=== PATIENT | female | born 1960 | race Caucasian/White ===

== ENCOUNTER → 2017-05-07 15:50 | Outpatient (CLI) | payer OTHER, SELFPAY ==
[2017-05-07 18:05] LABS: Hematocrit 36.6 % (37-47); Hemoglobin 11.5 g/dl (12.0-15.0); Mean Corp Hgb Conc 31.4 g/gl (32-36); Mean Corpuscular Hgb 27.2 pg (27.0-32.0); Mean Corpuscular Volume 86.5 fL (81-99); Platelet Count 392 K/mm3 (150-450); RBC Distribution Width CV 14.3 % (11.6-14.6); RBC Distribution Width SD 44.9 fl (35.1-43.9); Red Blood Count 4.23 M/mm3 (4.2-5.4); White Blood Count 6.5 K/mm3 (4.4-11.0)
[2017-05-07 18:23] LABS: Amphetamine Urine VISTA NEGATIVE (<1000 ng/mL); Anion Gap 9 (5-15); BUN 13 mg/dL (7-18); BUN/Creat Ratio 17.9 RATIO (10-20); Barbiturate Urine VISTA NEGATIVE (< 200 ng/mL); Benzodiazepine Urine VISTA NEGATIVE (< 200 ng/mL); Calcium,Total 8.2 mg/dL (8.5-10.1); Chloride 104 mmol/L (98-107); Cocaine Urine VISTA NEGATIVE (< 300 ng/mL); Creatinine, Serum 0.72 mg/dL (0.55-1.02); EST Glomerular Filtration Rate 88 mL/min (>60); Ecstacy Urine VISTA NEGATIVE (< 500 ng/mL); Est Glom Filt Rate - Afr Amer 107 mL/min (>60); Ferritin 12 ng/mL (8-252); Glucose 92 mg/dL (74-106); Iron 33 ug/dL (50-170); Methadone Urine VISTA NEGATIVE (< 300 ng/mL); PCP Urine VISTA NEGATIVE (< 25 ng/mL); Phosphorus 3.3 mg/dL (2.5-4.9); Potassium 3.5 mmol/L (3.5-5.1); Sodium Level 140 mmol/L (136-145); THC Urine VISTA NEGATIVE (< 50 ng/mL); Thyroid Stim Hormone (TSH) 2.17 uIU/mL (0.358-3.74); Vista UDS pH Range 6
[2017-05-07 18:58] LABS: Scan Indicated on CBC? Y/N NO
[2017-05-08 08:49] LABS: PTHIN 188.3 pg/mL (18.4-80.1)
[2017-05-08 09:12] LABS: Vitamin D,25 Hydroxy 11.8 ng/mL (19.95-100.01)
== END ==
PROVIDERS: Family Provider Family Medicine; PCP Family Medicine; Visit Provider Family Medicine
DX: D50.9 Iron deficiency anemia, unspecified (principal); G89.29 Other chronic pain; M81.0 Age-related osteoporosis without current pathological fracture
CPT/HCPCS: 36415; 80048; 80307; 82306; 82330; 82728; 83540; 83970; 84100; 84443; 85027

== ENCOUNTER → 2017-08-06 16:13 | Outpatient (CLI) | payer OTHER, SELFPAY ==
[2017-08-06 17:56] LABS: Absolute Lymphocyte Count 2.55 X10^3/ul (0.83-4.51); Absolute Neutrophil Count 4.4 X10^3/uL (2.0-7.7); Basophil# 0.07 X10^3/uL; Basophil% 0.9 % (0-1); Eosinophil# 0.21 X10^3/uL; Eosinophils% 2.8 % (0-5); Hematocrit 33.3 % (37-47); Hemoglobin 10.5 g/dl (12.0-15.0); Immature Platelet Fraction 0.8 % (1.0-7.9); Lymphocyte # 2.55 X10^3/ul (4.0); Lymphocyte % 33.7 % (19-41); Mean Corp Hgb Conc 31.5 g/gl (32-36); Mean Corpuscular Hgb 26.9 pg (27.0-32.0); Mean Corpuscular Volume 85.4 fL (81-99); Mean Platelet Vol. 8.9 fl (6.2-12.0); Monocyte# 0.34 X10^3/uL; Monocyte% 4.5 % (0-10); Neutrophil # 4.39 X10^3/uL (2.7-7.7); Platelet Count 439 K/mm3 (150-450); RBC Distribution Width CV 14.8 % (11.6-14.6); RBC Distribution Width SD 46.2 fl (35.1-43.9); Reticulocyte Count 1.35 % (0.5-1.5); White Blood Count 7.6 K/mm3 (4.4-11.0)
[2017-08-06 18:01] LABS: POSITIVE COUNT NO; POSITIVE DIFFERENTIAL NO; POSITIVE MORPHOLOGY NO
[2017-08-06 18:08] LABS: Anion Gap 8 (5-15); BUN 14 mg/dL (7-18); Calcium,Total 8.4 mg/dL (8.5-10.1); Chloride 105 mmol/L (98-107); Creatinine, Serum 0.78 mg/dL (0.55-1.02); EST Glomerular Filtration Rate 81 mL/min (>60); Est Glom Filt Rate - Afr Amer 98 mL/min (>60); Ferritin 14 ng/mL (8-252); Glucose 93 mg/dL (74-106); Iron 48 ug/dL (50-170); Iron Binding Capacity,Total 394 ug/dL (250-450); PERCENT IRON SATURATION 12.2 % (15.0-55.0); Sodium Level 140 mmol/L (136-145)
[2017-08-07 09:21] LABS: PTHIN 159.6 pg/mL (18.4-80.1)
[2017-08-07 09:25] LABS: Vitamin D,25 Hydroxy 40.1 ng/mL (29.95-100.01)
== END ==
PROVIDERS: Family Provider Family Medicine; PCP Family Medicine; Visit Provider Family Medicine
DX: E55.9 Vitamin D deficiency, unspecified (principal); E83.51 Hypocalcemia
CPT/HCPCS: 36415; 80048; 82306; 82330; 82728; 83540; 83550; 83970; 85025; 85045

== ENCOUNTER → 2017-11-06 15:48 | Outpatient (CLI) | payer OTHER, SELFPAY | PROVIDERS: Family Provider Family Medicine; PCP Family Medicine; Visit Provider Anesthesiology Pain Medicine | DX: M51.34 Other intervertebral disc degeneration, thoracic region (principal); M54.14 Radiculopathy, thoracic region | CPT/HCPCS: 72146 ==

== ENCOUNTER → 2017-12-20 15:58 | Outpatient (CLI) | payer OTHER, SELFPAY ==
[2017-12-20 17:27] LABS: Absolute Neutrophil Count 3.7 X10^3/uL (2.0-7.7); Basophil# 0.11 X10^3/uL; Basophil% 1.6 % (0-1); Eosinophil# 0.22 X10^3/uL; Eosinophils% 3.2 % (0-5); Hematocrit 33.6 % (37-47); Hemoglobin 10.6 g/dl (12.0-15.0); Lymphocyte % 35.4 % (19-41); Mean Corp Hgb Conc 31.5 g/gl (32-36); Mean Corpuscular Hgb 26.3 pg (27.0-32.0); Mean Corpuscular Volume 83.4 fL (81-99); Mean Platelet Vol. 9.6 fl (6.2-12.0); Monocyte# 0.38 X10^3/uL; Monocyte% 5.6 % (0-10); Neutrophil # 3.66 X10^3/uL (2.7-7.7); Neutrophil % 54.1 % (47-70); Platelet Count 388 K/mm3 (150-450); RBC Distribution Width CV 14.4 % (11.6-14.6); Red Blood Count 4.03 M/mm3 (4.2-5.4); White Blood Count 6.8 K/mm3 (4.4-11.0)
[2017-12-20 17:29] LABS: POSITIVE COUNT NO; POSITIVE DIFFERENTIAL NO; POSITIVE MORPHOLOGY NO
[2017-12-20 17:33] LABS: Anion Gap 12 (5-15); BUN 10 mg/dL (7-18); BUN/Creat Ratio 12.6 RATIO (10-20); Calcium,Total 8.8 mg/dL (8.5-10.1); Chloride 103 mmol/L (98-107); Creatinine, Serum 0.79 mg/dL (0.55-1.02); EST Glomerular Filtration Rate 80 mL/min (>60); Est Glom Filt Rate - Afr Amer 96 mL/min (>60); Glucose 99 mg/dL (74-106); Iron 37 ug/dL (50-170); Potassium 3.7 mmol/L (3.5-5.1); Sodium Level 141 mmol/L (136-145)
[2017-12-20 18:17] LABS: PTHIN 156.1 pg/mL (18.4-80.1)
== END ==
PROVIDERS: Family Provider Family Medicine; PCP Family Medicine; Visit Provider Family Medicine
DX: D64.9 Anemia, unspecified (principal)
CPT/HCPCS: 36415; 80048; 83540; 83970; 85025

== ENCOUNTER → 2017-12-24 15:17 | Outpatient (CLI) | payer OTHER, SELFPAY ==
[2017-12-24 18:01] LABS: Ferritin 12 ng/mL (8-252); Phosphorus 2.9 mg/dL (2.5-4.9)
== END ==
PROVIDERS: Family Provider Family Medicine; PCP Family Medicine; Referring Provider Family Medicine; Visit Provider Family Medicine
DX: D50.9 Iron deficiency anemia, unspecified (principal); E34.9 Endocrine disorder, unspecified
CPT/HCPCS: 36415; 82306; 82330; 82728; 84100

== ENCOUNTER → 2018-06-18 10:19 | Outpatient (CLI) | payer OTHER, SELFPAY ==
--- NOTE | 2018-06-18 10:27 | RAD_ITS ---
STUDY: X-RAY CHEST REASON FOR EXAM: Female, 57 years old. Shortness of breath since March. No improvement. TECHNIQUE: PA and lateral views of the chest. COMPARISON: None. FINDINGS: Vague density in the right middle lobe. The lungs appear otherwise clear. There is no demonstrated pleural abnormality. Normal size heart. Normal mediastinum and brit. Normal visualized pulmonary arteries. Normal visualized aortic arch and descending thoracic aorta. There are diffuse degenerative changes of the visualized thoracic spine. There is degenerative osteoarthritis of the bilateral shoulders. There is no demonstrated abnormality of the visualized soft tissue structures of the upper abdomen. RAD/Chest PA and Lateral IMPRESSION: Vague density in the right middle lobe. Question infiltrate versus chronic change. Electronically Signed: Gabino Rosenberg DO at 15:17 EDT Tel [phone], Service support ,
== END ==
PROVIDERS: Family Provider Family Medicine; PCP Family Medicine; Referring Provider Family Medicine; Visit Provider Family Medicine
DX: J45.909 Unspecified asthma, uncomplicated (principal)
CPT/HCPCS: 71046

== ENCOUNTER → 2019-08-08 | Outpatient (CLI) | payer OTHER, SELFPAY ==
[2019-08-08 08:27] LABS: Hematocrit 32.6 % (37-47); Hemoglobin 9.8 g/dL (12.0-15.0); Mean Corp Hgb Conc 30.1 g/dL (32-36); Mean Corpuscular Hgb 24.8 pg (27.0-32.0); Mean Corpuscular Volume 82.5 fL (81-99); Mean Platelet Vol. 9.2 fl (6.2-12.0); Platelet Count 431 K/mm3 (150-450); RBC Distribution Width CV 14.7 % (11.6-14.6); RBC Distribution Width SD 44.3 fl (35.1-43.9); Red Blood Count 3.95 M/mm3 (4.2-5.4); White Blood Count 7.5 K/mm3 (4.4-11.0)
[2019-08-08 08:58] LABS: AST(SGOT) 12 U/L (15-37); Alanine Aminotransfer ALT/SGPT 13 U/L (13-56); Albumin, Serum 3.6 g/dL (3.2-5.0); Alkaline Phosphatase 96 U/L (45-117); Anion Gap 5 (5-15); BUN 13 mg/dL (7-18); BUN/Creat Ratio 13.4 RATIO (10-20); Calcium,Total 8.9 mg/dL (8.5-10.1); Chloride 109 mmol/L (98-107); Cholesterol 228 mg/dL (200); Creatinine, Serum 0.97 mg/dL (0.55-1.02); EST Glomerular Filtration Rate 63 mL/min (>60); Est Glom Filt Rate - Afr Amer 76 mL/min (>60); Globulin 3.5 g/dL (2.2-4.2); Glucose 91 mg/dL (74-106); High Density Lipoprotein 67 mg/dL; Protein, Total 7.1 g/dL (6.4-8.2); Sodium Level 141 mmol/L (136-145); Triglycerides 113 mg/dL; Very Low Density Lipoprotein 23 mg/dL (5-40)
[2019-08-10 08:47] LABS: Vitamin D,25 Hydroxy 76.2 ng/mL
[2019-08-11 04:38] LABS: SAR-COV-2 IGG ANTIBODY Negative (Negative)
== END | disposition home or self-care (01) ==
LOC: LAB 06:59
PROVIDERS: PCP Family Medicine; Referring Provider Family Medicine; Visit Provider Family Medicine
DX: D50.9 Iron deficiency anemia, unspecified (principal); I10 Essential (primary) hypertension; E55.9 Vitamin D deficiency, unspecified; Z20.828 Contact with and (suspected) exposure to other viral communicable diseases
CPT/HCPCS: 36415; 80053; 80061; 82306; 85027; 86769

== ENCOUNTER → 2019-12-07 | Outpatient (CLI) | payer OTHER, SELFPAY ==
[2019-12-11 12:55] LABS: HPV Reflexed? NOT INDICATED
== END | disposition home or self-care (01) ==
LOC: LABSPEC 18:26
PROVIDERS: PCP Family Medicine; Visit Provider Family Medicine
DX: Z00.00 Encounter for general adult medical examination without abnormal findings (principal)
CPT/HCPCS: 88175; G0145

== ENCOUNTER → 2019-12-08 | Outpatient (CLI) | payer OTHER, SELFPAY ==
--- NOTE | 2019-12-08 10:10 | BI_ITS ---
MAMMOGRAPHY - BILATERAL SCREENING REASON FOR EXAM: Female, 59 years old. Routine annual screening examination. PERTINENT HISTORY: Sister with breast cancer. Remote left stereotactic breast biopsy. TECHNIQUE: Digital bilateral breast benjamin (3D mammographic acquisition) in the CC and MLO projections. 2-D mediolateral oblique (MLO) and craniocaudad (CC) views of both breasts were obtained. CAD: Full Field Digital Mammography with Computer Added Detection was performed. COMPARISON: Comparison is made with prior study dated 10/26/2015 and 06/01/2011. FINDINGS: Breast Composition: There are scattered areas of fibroglandular density. There are no dominant masses or suspicious calcifications. No other significant abnormalities are identified. There has been no significant change since the prior study. BI/SCREEN MAMM (CAD) W/BENJAMIN BILAT IMPRESSION: Stable bilateral screening mammogram. Yearly follow-up mammogram recommended. (A) ASSESSMENT CATEGORY: BIRADS Category 1: Negative. A letter regarding these results will be sent to the patient by the facility within 30 days. Approximately 10% of breast cancers are not detected by mammography. A normal mammogram should not delay biopsy of a clinically suspicious abnormality. [id number] Electronically Signed: Fredy Gomez, at 12:47 EDT , Service support ,
--- NOTE | 2019-12-08 10:15 | BD_ITS ---
STUDY: DUAL ENERGY X-RAY ABSORPTIOMETRY / DXA REASON FOR EXAM: Female, 59 years old. 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 HEIGHT TECHNIQUE: Bone Mineral Density (BMD) measurements of lumbar spine and bilateral hips were obtained. COMPARISON: None. FINDINGS: Lumbar Spine (L1-L4): g/cm2 (0.823) / T-score (-2.8) / Z-score (-1.8) Findings are suggestive of osteoporosis with a high fracture risk. Left Femur Total: g/cm2 (0.658) / T-score (-2.8) / Z-score (-2.0) Left Femoral Neck: g/cm2 (0.686) / T-score (-2.5) / Z-score (-1.4) Right Femur Total: g/cm2 (0.633) / T-score (-3.0) / Z-score (-2.2) Right Femoral Neck: g/cm2 (0.664) / T-score (-2.7) / Z-score (-1.5) BD/Dexa Bone Density Study IMPRESSION: The patient is considered osteoporotic as outlined below according to World Dm Organization (WHO) criteria with a high fracture risk. Reference Information: The T-score is the number of standard deviations above or below the standard which is normal for young adults at their peak bone mineral density. The World Health Organization (WHO) interprets the T-scores as follows: Above -1 Normal bone density Between -1 and -2.5 Osteopenia Equal to / or below -2.5 Osteoporosis As a practical clinical guideline, osteopenia may be graded as follows: Mild -1 through -1.5 Moderate -1.6 through -2.0 Severe -2.1 through -2.4 The Z-score is the number of standard deviations above or below age-matched controls. A Z-score of less than -1.5 would be considered abnormal. References: 1. NIH Osteoporosis and Related Bone Diseases http://www.osteo.org 2. International Society for Clinical Densitometry http://www.iscd.org 3. National Osteoporosis Foundation http://www.nof.org Electronically Signed: Fredy Gomez, at 11:08 EDT , Service support ,
== END | disposition home or self-care (01) ==
LOC: OPBD 10:09
PROVIDERS: PCP Family Medicine; Referring Provider Family Medicine; Visit Provider Family Medicine
DX: M81.0 Age-related osteoporosis without current pathological fracture (principal); Z12.31 Encounter for screening mammogram for malignant neoplasm of breast
CPT/HCPCS: 77063; 77067; 77080

== ENCOUNTER → 2020-02-10 16:55 | Outpatient (CLI) | payer OTHER, SELFPAY ==
[2020-02-10 19:07] LABS: Anion Gap 5 (5-15); BUN 18 mg/dL (7-18); BUN/Creat Ratio 16.4 RATIO (10-20); Calcium,Total 8.9 mg/dL (8.5-10.1); Chloride 111 mmol/L (98-107); EST Glomerular Filtration Rate 54 mL/min (>60); Est Glom Filt Rate - Afr Amer 66 mL/min (>60); Glucose 91 mg/dL (74-106); Magnesium 2.3 mg/dL (1.6-2.6); Potassium 3.8 mmol/L (3.5-5.1); Sodium Level 144 mmol/L (136-145)
[2020-02-11 07:49] LABS: PTHIN 124.8 pg/mL (18.4-80.1)
== END ==
PROVIDERS: PCP Family Medicine; Visit Provider Family Medicine
DX: M81.0 Age-related osteoporosis without current pathological fracture (principal)
CPT/HCPCS: 36415; 80048; 82330; 83735; 83970

== ENCOUNTER → 2020-04-08 11:31 | Outpatient (CLI) | payer OTHER, SELFPAY ==
--- NOTE | 2020-04-08 11:35 | RAD_ITS ---
STUDY: X-RAY - LEFT SHOULDER REASON FOR EXAM: Left shoulder pain. TECHNIQUE: 4 view(s) of the shoulder. COMPARISON: Radiographs 07/06/2010. FINDINGS: There is osteopenia. Normal glenohumeral articulation. There is mild acromioclavicular arthrosis. Normal acromion. Normal humeral head and visualized proximal humerus. The soft tissue structures are unremarkable. Normal visualized pulmonary apex. RAD/Shoulder min 2 Views IMPRESSION: Mild acromioclavicular arthrosis. Electronically Signed: Moo Corado MD at 13:30 EST Tel , Service support ,
== END ==
LOC: MTLAB 11:33 → MTRAD 11:35
PROVIDERS: PCP Family Medicine; Referring Provider Family Medicine; Visit Provider Family Medicine
DX: M25.512 Pain in left shoulder (principal)
CPT/HCPCS: 73030

== ENCOUNTER → 2020-05-25 16:45 | Outpatient (CLI) | payer OTHER, SELFPAY ==
[2020-05-25 18:44] LABS: Anion Gap 7 (5-15); BUN 12 mg/dL (7-18); BUN/Creat Ratio 10.7 RATIO (10-20); Chloride 106 mmol/L (98-107); Creatinine, Serum 1.12 mg/dL (0.55-1.02); EST Glomerular Filtration Rate 53 mL/min (>60); Est Glom Filt Rate - Afr Amer 64 mL/min (>60); Glucose 108 mg/dL (74-106); Sodium Level 141 mmol/L (136-145)
[2020-05-26 08:30] LABS: PTHIN 86.6 pg/mL (18.4-80.1)
== END ==
PROVIDERS: PCP Family Medicine; Referring Provider Family Medicine; Visit Provider Family Medicine
DX: M81.0 Age-related osteoporosis without current pathological fracture (principal)
CPT/HCPCS: 36415; 80048; 82330; 83970

== ENCOUNTER 2020-06-23 15:00 | Outpatient (RCR) | payer OTHER, SELFPAY ==
--- NOTE | 2020-06-15 16:01 | HP.PTEVAL_ITS ---
Patient's Visit Information EVELINE MOSELEY is a 59 year old F referred to Physical Therapy by Dr. Edwin Nelson MD with a diagnosis of L shoulder pain. Date of Evaluation: 06/15/20 Physical Therapist: Tito Ojeda PT, ATC - Visit Plan Frequency: 2-3x /Week Duration: 4 Weeks Plan: L shoulder strengthening (rot cuff), scap stab ex's, UBE, and HEP - Subjective L arm and shoulder pain for 3 months. Pt reports the pain had an insidious onset in nature. Pt reports she had x rays taken, mild OA. Pt reports she just woke up one morning and had a sharp stabbing pain in her L shoulder. Pt notes swhe is R hand dominant. No tingling or numbness in L UE. Pt reports severe pain with IR of her L shoulder. Pt reports sleep difficulty secondary to pain. Pt reports anything that she has to reach overhead for causes her pain. Pt reports her major goal is to get rid of L shoulder pain. 3/10 pain at rest, 7/10 pain at worst. 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 ROM: R shou lder flex: 140 degrees ABD: 120 degrees ER: 58 degrees. L shoulder flex: 105 degrees ABD: 50 degrees with pain ER: 45 degrees. IR rotation WNL bilat. MMT: L shoulder 3-/5 in all ranges and painful. Palpation: pain along supraspinatus at spine of scap and at tendon. Special tests: Empty can + pain; whitman iona + - Goals Goal 1:: Decrease L shoulder pain x 50% to aid with sleep Goal Time Frame: 4-6 Weeks Goal 2:: Increase L shoulder strength x 1 grade to aid with work requirements Goal Time Frame: 4-6 Weeks Goal 3:: Increase L shoulder ROM x 30 degrees to aid with IADL's Goal Time Frame: 4-6 Weeks Goal 4:: I with HEP Goal Time Frame: 4-6 Weeks - Rehabilitation Potential Physical Therapy Diagnosis: Pt has L shoulder pain, weakness, and limited ROM secondary to L shoulder impingement Rehabilitation Potential: Good - Anticipated Interventions Patient/Client Instruction: Educate patient on: Condition, Plan of Care For the Purpose of:: To improve self management Therapeutic Exercise to Include: Strength training, Endurance training, Flexibilty training, Active ROM, Scapular Strength/Stabilization Cryotherapy (ice pack, ice massage): Yes For the Purpose of:: To decrease pain Thank you for the opportunity to evaluate your patient. For Medicare and Medicare HMO plans, please review the plan of care and approve it. It will need to be FAXED BACK to us at [phone] for Medicare purposes. For Medicare only, by signing this I certify the plan of care. Please let me know if there are questions or concerns regarding this plan of care. Physician Signature: Date:
--- NOTE | 2020-10-05 08:29 | HP.PT.NRP ---
EVELINE MOSELEY was seen in my office for initial evaluation on 06/15/20. The following Plan of Care was established for this patient: Initial Frequency: 2-3x /Week Initial Duration: 4 Weeks Patient/Client Instruction: Educate patient on: Condition, Plan of Care For the Purpose of:: To improve self management Therapeutic Exercise to Include: Strength training, Endurance training, Flexibilty training, Active ROM, Scapular Strength/Stabilization Cryotherapy (ice pack, ice massage): Yes For the Purpose of:: To decrease pain This patient was last seen in our office . Pertinent comments regarding their Physical therapy will appear below: Pt was treated for 3 PT visits for L shoulder pain through the date of 06/23/20. Pt has not returned through todays date and is therefore discontinued at this time. At this point I will be discontinuing this patient from physical therapy. I would be happy to see this patient again in the future if found appropriate by the physician. Thank you! Tito Ojeda, PT, ATC
== END 2020-06-23 19:00 | disposition home or self-care (01) ==
LOC: PT 15:00
PROVIDERS: PCP Family Medicine; Referring Provider Family Medicine; Visit Provider Family Medicine
DX: M25.512 Pain in left shoulder (principal); M79.602 Pain in left arm
CPT/HCPCS: 97110; 97161

== ENCOUNTER → 2021-03-23 | Outpatient (CLI) | payer OTHER, SELFPAY | END | disposition home or self-care (01) | PROVIDERS: PCP Family Medicine; Visit Provider Family Medicine | DX: B34.9 Viral infection, unspecified (principal); U07.1 COVID-19 | CPT/HCPCS: 87635; U0003; U0005 ==

== ENCOUNTER 2021-03-27 01:31 | Emergency (ER) | payer OTHER, SELFPAY ==
[2021-03-27 01:32] VITALS: BP 144/78; PULSE 100; RESP 15; TEMP 36.6; O2SAT 98; BMI 28.0
--- NOTE | 2021-03-27 02:22 | RAD_ITS ---
STUDY: X-RAY CHEST REASON FOR EXAM: Female, 60 years old. cough TECHNIQUE: 1 view COMPARISON: 06/18/2018 FINDINGS: Cardiomediastinal silhouette is unremarkable. Costophrenic angles are sharp. Small patchy opacities noted in the periphery of the bilateral lower lungs. The trachea is midline. There is no pneumothorax. The bones are grossly intact. RAD/Chest 1 View (Portable) IMPRESSION: Small patchy opacities in the periphery of the bilateral lower lungs, which may be due to multifocal pneumonia such as Covid 19, aspiration, or atelectasis.. Electronically Signed: Luca Johansen MD at 2:56 EST Tel , Service support ,
[2021-03-27] MEDS: 0.9% Normal Saline 1,000 ML 999 ML IV (02:39)
[2021-03-27] MEDS: dexAMETHasone 10 MG/ML Vial IV (02:39)
[2021-03-27 02:43] LABS: Absolute Lymphocyte Count 0.66 X10^3/uL (0.83-4.51); Absolute Neutrophil Count 6.7 X10^3/uL (2.0-7.7); Basophil# 0.01 X10^3/uL; Basophil% 0.1 % (0-1); Hematocrit 31.7 % (37-47); Lymphocyte # 0.66 X10^3/ul (0.83-4.51); Lymphocyte % 8.5 % (19-41); Mean Corp Hgb Conc 31.5 g/dL (32-36); Mean Corpuscular Hgb 24.9 pg (27.0-32.0); Mean Corpuscular Volume 78.9 fL (81-99); Mean Platelet Vol. 9.3 fl (6.2-12.0); Monocyte# 0.35 X10^3/uL; Monocyte% 4.5 % (0-10); NRBC Flagged by Analyzer 0 % (0-5); Neutrophil # 6.73 X10^3/uL (2.7-7.7); Neutrophil % 86.5 % (47-70); Platelet Count 338 K/mm3 (150-450); RBC Distribution Width CV 14.2 % (11.6-14.6); RBC Distribution Width SD 40.8 fl (35.1-43.9); Red Blood Count 4.02 M/mm3 (4.2-5.4); White Blood Count 7.8 K/mm3 (4.4-11.0)
[2021-03-27 03:10] LABS: Anion Gap 10 (5-15); BUN 19 mg/dL (7-18); BUN/Creat Ratio 21.6 RATIO (10-20); Calcium,Total 8.6 mg/dL (8.5-10.1); Chloride 104 mmol/L (98-107); Creatinine, Serum 0.88 mg/dL (0.55-1.02); EST Glomerular Filtration Rate 70 mL/min (>60); Est Glom Filt Rate - Afr Amer 85 mL/min (>60); Estimated Creatinine Clearance 56.94 ml/min; Glucose 107 mg/dL (74-106); Potassium 3.6 mmol/L (3.5-5.1); Sodium Level 135 mmol/L (136-145)
--- NOTE | 2021-03-27 03:10 | EX.ED.DYSGE1 ---
HPI History of Present Illness Chief Complaint: General Illness Narrative Narrative: Patient is a 60-year-old female who states 1 week ago she began with increased congestion sore throat fatigue and upset stomach. She states she was tested on March 23 for Covid and is positive. She states she feels in the last few days that her symptoms have increased in severity and she states her oral intake has been poor because of this and therefore comes in for evaluation [facility] Medical History Hypertension Home Medications atenolol 50 mg PO DAILY 08/12/14 [History Last Taken Unknown] lisinopril 10 mg PO DAILY 08/12/14 [History Last Taken Unknown] venlafaxine 37.5 mg PO QHS 08/12/14 [History Last Taken Unknown] venlafaxine 75 mg PO DAILY 08/12/14 [History Last Taken Unknown] amlodipine 5 mg PO DAILY 03/27/21 [History Last Taken Unknown] buspirone 5 mg PO BID 03/27/21 [History Last Taken Unknown] dexamethasone [Decadron] 6 mg PO DAILY 10 Days #10 tab 03/27/21 [Rx Last Taken Unknown] ergocalciferol (vitamin D2) 1,250 mcg PO DAILY 03/27/21 [History Last Taken Unknown] famotidine 40 mg PO DAILY 03/27/21 [History Last Taken Unknown] gabapentin 300 mg PO BID 03/27/21 [History Last Taken Unknown] meloxicam 15 mg PO DAILY 03/27/21 [History Last Taken Unknown] promethazine-codeine 5 ml PO Q6H PRN 7 Days #140 ml 03/27/21 [Rx Last Taken Unknown] ropinirole 0.5 mg PO QHS 03/27/21 [History Last Taken Unknown] zolpidem 10 mg PO QHS 03/27/21 [History Last Taken Unknown] Allergy/AdvReac Type Severity Reaction Status Date / Time No Known Allergies Allergy Verified 08/12/14 03:00 Social History Smoking Status: Never smoker ROS [facility] ED Constitutional Constitutional ED: Reports chills, fever(s), subjective and other ENT ENT ED: Reports rhinorrhea and sore throat Cardiovascular Cardiovascular: Denies chest pain Respiratory/Chest Respiratory/Chest: Reports cough and dyspnea Gastrointestinal Gastrointestinal: Reports abdominal pain, diarrhea and nausea; Denies vomiting Genitourinary Genitourinary ED: Denies dysuria Musculoskeletal Musculoskeletal: Reports myalgias Integumentary Denies rash Neurologic Neurologic: Reports headache(s) Hematologic/Lymphatic Hematologic/Lymphatic: Denies easy bleeding or easy bruising EXAM Physical Exam Const Vital Signs: 03/27/21 01:32 03/27/21 01:34 Temperature 97.8 F Temperature Source Temporal Pulse Rate 100 Respiratory Rate 15 Respiratory Effort Normal Non-Labored Respiratory Pattern Normal Blood Pressure 144/78 H Blood Pressure Mean 100 Pulse Ox 98 Oxygen Delivery Method Room Air Positive well nourished and well developed General Appearance ED: well developed HEENT Reports dry mucous membranes Mouth ED: Yes dry mucous membranes Mouth: dry mucous membranes Eyes PERRL and EOMs intact bilaterally Neck supple and no JVD Neck Narrative: Positive anterior cervical lymphadenopathy Chest Wall palpation of chest normal Resp normal respiratory effort Resp Narrative: Breath sounds are diminished throughout with faint expiratory wheeze in the bilateral bases but no signs of distress Cardio regular rate and regular rhythm Rate: other Other Details: Radial pulses are +2-4 bilaterally are equal and symmetric GI non-tender and non-distended GI Narrative: Bowel sounds are hyperactive there is no voluntary guarding or rigidity no pulsatile mass Palpation: soft Extremity normal to inspection Neuro oriented x3 and CN's II-XII intact bilaterally Sensorium / Orientation: alert Motor Exam: strength 5/5 throughout Psych Psych Narrative: Patient has a flat affect Skin no rashes or lesions noted Skin Narrative: Skin turgor is increased MDM MDM MDM Narrative Medical decision making narrative: Patient presented to the ER in no acute respiratory distress satting in the high 90s on room air. She had an outpatient Covid test on March 23 which was positive and her constellation of symptoms are consistent with this. Based on her report of poor oral intake I did elect to perform basic laboratory studies which revealed no acute findings. Chest x-ray did show mild infiltrate consistent with Covid pneumonia. However patient does not have respiratory distress or hypoxia and therefore does not need placed in the hospital. Based on her age and medical comorbidities and now pneumonia I will order monoclonal antibodies for her but she is not requiring admission as she does not have hypoxia or need for supplemental oxygen Lab Data Attestation: I reviewed the patient's lab results. Labs: Laboratory Results - last 24 hr 03/27/21 03/27/21 02:30 02:30 WBC 7.8 RBC 4.02 L Hgb 10.0 L Hct 31.7 L MCV 78.9 L MCH 24.9 L MCHC 31.5 L RDW Std Deviation 40.8 RDW Coeff of Mariella 14.2 Plt Count 338 MPV 9.3 Immature Gran % (Auto) 0.400 Neut % (Auto) 86.5 H Lymph % (Auto) 8.5 L [place] % (Auto) 4.5 Eos % (Auto) 0.0 Baso % (Auto) 0.1 Absolute Neuts (auto) 6.7 Absolute Lymphs (auto) 0.66 L Nucleated RBC % 0 Sodium 135 L Potassium 3.6 Chloride 104 Carbon Dioxide 21.0 Anion Gap 10 BUN 19 H Creatinine 0.88 Estim Creat Clear Calc 56.94 Est GFR (MDRD) Af Amer 85 Est GFR (MDRD) Non-Af 70 BUN/Creatinine Ratio 21.6 H Glucose 107 H Calcium 8.6 Radiography Diagnostic Testing: Clinical Impression(s) from Imaging Studies Chest X-Ray 03/27/21 02:22 IMPRESSION: Small patchy opacities in the periphery of the bilateral lower lungs, which may be due to multifocal pneumonia such as Covid 19, aspiration, or atelectasis.. Electronically Signed: Luca Johansen MD at 2:56 EST Tel , Service support , Discharge Plan Triage Chief Complaint: General Illness ED Provider: Van Lott Dx/Rx/DC Orders Clinical Impression: Pneumonia due to 2019 novel coronavirus Instructions: Coronavirus Disease 2019 (COVID-19): Caring for Yourself or Others Prescriptions: New dexamethasone [Decadron] 6 mg tablet 6 mg PO DAILY 10 Days Qty: 10 RF: 0 promethazine-codeine 6.25-10 mg/5 mL syrup 5 ml PO Q6H PRN (Reason: cough) 7 Days Qty: 140 RF: 0 No Action venlafaxine 75 MG tablet 75 mg PO DAILY RF: 0 venlafaxine 37.5 MG tablet 37.5 mg PO QHS RF: 0 lisinopril 10 MG tablet 10 mg PO DAILY RF: 0 atenolol 50 MG tablet 50 mg PO DAILY RF: 0 buspirone 5 mg tablet 5 mg PO BID RF: 0 meloxicam 15 mg tablet 15 mg PO DAILY RF: 0 famotidine 40 mg tablet 40 mg PO DAILY RF: 0 amlodipine 5 mg tablet 5 mg PO DAILY RF: 0 ropinirole 0.5 mg tablet 0.5 mg PO QHS RF: 0 gabapentin 300 mg capsule 300 mg PO BID RF: 0 ergocalciferol (vitamin D2) 1,250 mcg (50,000 unit) capsule 1,250 mcg PO DAILY RF: 0 zolpidem 10 mg tablet 10 mg PO QHS RF: 0 Other Ambulatory Orders: COVID Outpatient Monoclonal Antibody Referral (Routine) Timeframe: 1 Day Facility: [facility] - Location: [facility] Ordered By: Dr. Van Lott Primary Care Provider: Edwin Nelson Referrals: Edwin Nelson MD [Primary Care Provider] - Disposition Disposition: Home, Self Care
[2021-03-27 04:03] VITALS: PULSE 98; RESP 22; O2SAT 96
== END 2021-03-27 04:04 | disposition home or self-care (01) ==
PROVIDERS: Emergency Provider Emergency Medicine; PCP Family Medicine; Visit Provider Emergency Medicine
DX: U07.1 COVID-19 (principal); J12.82 Pneumonia due to coronavirus disease 2019; I10 Essential (primary) hypertension
CPT/HCPCS: 71045; 80048; 85025; 96361; 96374; 99284; J7030

== ENCOUNTER 2021-03-27 15:17 | Outpatient (CLI) | payer OTHER, SELFPAY ==
[2021-03-27] MEDS: 0.9% Saline Lock 10 ML Syringe IV (15:37)
[2021-03-27 15:38] VITALS: BP 131/81; PULSE 71; RESP 18; TEMP 36.8; O2SAT 100; BMI 26.5
[2021-03-27 16:00] VITALS: BP 138/83; PULSE 67; RESP 16; TEMP 37.2; O2SAT 96
[2021-03-27 16:46] VITALS: BP 134/81; PULSE 71; RESP 18; TEMP 37.4; O2SAT 100
== END 2021-03-27 23:59 | disposition home or self-care (01) ==
LOC: MS3OUT 15:18 → MS3 15:18
PROVIDERS: PCP Family Medicine; Referring Provider Nurse Practitioner Adult Health; Visit Provider Nurse Practitioner Adult Health
DX: Z23 Encounter for immunization (principal); U07.1 COVID-19; J45.909 Unspecified asthma, uncomplicated
CPT/HCPCS: J7050; M0243; A4216; Q0244

== ENCOUNTER 2021-07-08 07:00 | Outpatient (CLI) | payer OTHER, SELFPAY ==
[2021-07-08 07:32] LABS: Hematocrit 32.7 % (37-47); Mean Corp Hgb Conc 30.6 g/dL (32-36); Mean Corpuscular Hgb 24.4 pg (27.0-32.0); Mean Platelet Vol. 9.1 fl (6.2-12.0); Platelet Count 497 K/mm3 (150-450); RBC Distribution Width CV 14.6 % (11.6-14.6); RBC Distribution Width SD 42.6 fl (35.1-43.9); Red Blood Count 4.09 M/mm3 (4.2-5.4); White Blood Count 8.3 K/mm3 (4.4-11.0)
[2021-07-08 07:55] LABS: Anion Gap 5 (5-15); BUN 13 mg/dL (7-18); BUN/Creat Ratio 12.6 RATIO (10-20); Calcium,Total 8.3 mg/dL (8.5-10.1); Chloride 107 mmol/L (98-107); Cholesterol 203 mg/dL (200); Creatinine, Serum 1.03 mg/dL (0.55-1.02); EST Glomerular Filtration Rate 58 mL/min (>60); Est Glom Filt Rate - Afr Amer 70 mL/min (>60); Glucose 97 mg/dL (74-106); High Density Lipoprotein 78 mg/dL; Sodium Level 139 mmol/L (136-145); Triglycerides 90 mg/dL; Very Low Density Lipoprotein 18 mg/dL (5-40)
[2021-07-10 07:59] LABS: PTHIN 122.5 pg/mL (18.4-80.1)
== END 2021-07-08 23:59 | disposition home or self-care (01) ==
LOC: LAB 07:01
PROVIDERS: PCP Family Medicine; Referring Provider Family Medicine; Visit Provider Family Medicine
DX: I10 Essential (primary) hypertension (principal); D50.9 Iron deficiency anemia, unspecified; M81.0 Age-related osteoporosis without current pathological fracture
CPT/HCPCS: 36415; 80048; 80061; 83970; 85027

== ENCOUNTER → 2022-02-05 | Outpatient (CLI) | payer OTHER, SELFPAY ==
[2022-02-05 18:08] LABS: Red Blood Cells-Urine 0 SEEN /hpf (0-5)
[2022-02-05 18:28] LABS: Color, Urine Amber (Yellow); Glucose, Dipstick Normal (Normal); Ketone-Dipstick 15 mg/dl (Negative); Leukocyte Esterase-Dipstick 100 /ul (Negative); Nitrite-Dipstick Positive (Negative); Occult Blood-Urine 10 /ul (Negative); Protein-Dipstick 30 mg/dl (Negative); Urine Clarity Clear (Clear); Urine Urobilinogen 4 mg/dl (Normal)
[2022-02-05 18:46] LABS: Urine Bilirubin Dipstick 1 mg/dL (Negative)
[2022-02-05 18:48] LABS: Bacteria RARE /hpf (None Seen); Hyaline Cast 0-5 SEEN /lpf (0-5)
[2022-02-05 18:49] LABS: Mucous, Urine 1+ /hpf (<or=2+); Squamous Epithelial Cells - UA 0-5 SEEN /hpf (5-10); White Blood Cells 0-5 SEEN /hpf (0-5)
== END | disposition home or self-care (01) ==
PROVIDERS: PCP Family Medicine; Visit Provider Family Medicine
DX: R82.2 Biliuria (principal)
CPT/HCPCS: 81001; 87086; 87088

== ENCOUNTER → 2022-03-09 | Outpatient (CLI) | payer OTHER, SELFPAY ==
--- NOTE | 2022-03-09 14:51 | BI_ITS ---
MAMMOGRAPHY - BILATERAL SCREENING REASON FOR EXAM: Female, 61 years old. Routine annual screening examination. PERTINENT HISTORY: Sister with breast cancer. Remote left stereotactic breast biopsy. TECHNIQUE: Digital bilateral breast benjamin (3D mammographic acquisition) in the CC and MLO projections. 2-D mediolateral oblique (MLO) and craniocaudad (CC) views of both breasts were obtained. CAD: Full Field Digital Mammography with Computer Added Detection was performed. COMPARISON: Comparison is made with prior study dated 12/08/2019 and 10/26/2015. FINDINGS: Breast Composition: There are scattered areas of fibroglandular density. There are no dominant masses or suspicious calcifications. No other significant abnormalities are identified. There has been no significant change since the prior study. BI/SCRN MAMM (CAD)W/BENJAMIN BILAT IMPRESSION: Stable bilateral screening mammogram. Yearly follow-up mammogram recommended. (A) ASSESSMENT CATEGORY: BIRADS Category 1: Negative. A letter regarding these results will be sent to the patient by the facility within 30 days. Approximately 10% of breast cancers are not detected by mammography. A normal mammogram should not delay biopsy of a clinically suspicious abnormality. [id number] Electronically Signed: Fredy Gomez MD at 15:05 EST ,
== END | disposition home or self-care (01) ==
LOC: OPBI 14:50
PROVIDERS: PCP Family Medicine; Referring Provider Family Medicine; Visit Provider Family Medicine
DX: Z12.31 Encounter for screening mammogram for malignant neoplasm of breast (principal); Z80.3 Family history of malignant neoplasm of breast
CPT/HCPCS: 77063; 77067

== ENCOUNTER → 2022-05-07 | Outpatient (CLI) | payer OTHER, SELFPAY ==
[2022-05-07 18:45] LABS: Anion Gap 7 (5-15); BUN 14 mg/dL (7-18); BUN/Creat Ratio 12.6 RATIO (10-20); Chloride 105 mmol/L (98-107); Creatinine, Serum 1.11 mg/dL (0.55-1.02); EST Glomerular Filtration Rate 53 mL/min (>60); Est Glom Filt Rate - Afr Amer 64 mL/min (>60); Glucose 85 mg/dL (74-106); Potassium 3.7 mmol/L (3.5-5.1); Sodium Level 138 mmol/L (136-145)
[2022-05-07 18:50] LABS: Vitamin D,25 Hydroxy 66.4 ng/mL
[2022-05-08 08:48] LABS: PTHIN 109.7 pg/mL (18.4-80.1)
== END | disposition home or self-care (01) ==
LOC: MFPLAB 16:31
PROVIDERS: PCP Family Medicine; Visit Provider Family Medicine
DX: I10 Essential (primary) hypertension (principal); M81.0 Age-related osteoporosis without current pathological fracture
CPT/HCPCS: 36415; 80048; 82306; 82330; 83970

== ENCOUNTER → 2022-07-31 | Outpatient (CLI) | payer OTHER, SELFPAY ==
[2022-07-31 17:50] LABS: Mucous, Urine 0 SEEN /hpf (<or=2+); Red Blood Cells-Urine 0 SEEN /hpf (0-5)
[2022-07-31 18:07] LABS: Color, Urine Yellow (Yellow); Glucose, Dipstick Normal (Normal); Ketone-Dipstick 5 mg/dl (Negative); Leukocyte Esterase-Dipstick 100 /ul (Negative); Nitrite-Dipstick Negative (Negative); Occult Blood-Urine Negative /ul (Negative); Protein-Dipstick 15 mg/dl (Negative); Specific Gravity, Urine 1.025 (1.002-1.030); Urine Bilirubin Dipstick Negative (Negative); Urine Clarity Clear (Clear); Urine Urobilinogen 1 mg/dl (Normal)
[2022-07-31 18:30] LABS: Bacteria RARE /hpf (None Seen); Squamous Epithelial Cells - UA 0-5 SEEN /hpf (5-10); White Blood Cells 5-10 SEEN /hpf (0-5)
== END | disposition home or self-care (01) ==
PROVIDERS: PCP Family Medicine; Visit Provider Family Medicine
DX: R82.2 Biliuria (principal)
CPT/HCPCS: 81001

== ENCOUNTER → 2022-10-11 | Outpatient (CLI) | payer OTHER, SELFPAY ==
--- NOTE | 2022-10-11 15:18 | RAD_ITS ---
STUDY: X-RAY - THORACIC SPINE REASON FOR EXAM: Female, 62 years old. pain TECHNIQUE: 3 view(s) of the thoracic spine were obtained. COMPARISON: 03/13/2017 FINDINGS: Normal kyphosis of the thoracic spine. Mild S-shaped scoliosis. There is multilevel endplate spondylosis of the thoracic vertebrae. There is multilevel disc space narrowing of the thoracic spine. The soft tissue structures are unremarkable. RAD/Thoracic Spine 3 Views IMPRESSION: Mild S-shaped scoliosis with degenerative disc disease. Electronically Signed: Valentino Figueroa MD at 22:10 EDT ,
[2022-10-11 18:13] LABS: Anion Gap 7 (5-15); BUN 12 mg/dL (7-18); BUN/Creat Ratio 9.7 RATIO (10-20); Calcium,Total 8.8 mg/dL (8.5-10.1); Chloride 105 mmol/L (98-107); Creatinine, Serum 1.24 mg/dL (0.55-1.02); EST Glomerular Filtration Rate 47 mL/min (>60); Est Glom Filt Rate - Afr Amer 57 mL/min (>60); Glucose 87 mg/dL (74-106); Potassium 3.5 mmol/L (3.5-5.1); Sodium Level 137 mmol/L (136-145)
[2022-10-11 18:15] LABS: Absolute Lymphocyte Count 2.49 X10^3/uL (0.83-4.51); Absolute Neutrophil Count 4.9 X10^3/uL (2.0-7.7); Basophil# 0.13 X10^3/uL; Basophil% 1.6 % (0-1); Eosinophils% 2.4 % (0-5); Hematocrit 32.3 % (37-47); Hemoglobin 9.4 g/dL (12.0-15.0); Lymphocyte # 2.49 X10^3/ul (0.83-4.51); Lymphocyte % 30.4 % (19-41); Mean Corp Hgb Conc 29.1 g/dL (32-36); Mean Corpuscular Hgb 24.4 pg (27.0-32.0); Mean Corpuscular Volume 83.7 fL (81-99); Mean Platelet Vol. 9.8 fl (6.2-12.0); Monocyte# 0.47 X10^3/uL; Monocyte% 5.7 % (0-10); NRBC Flagged by Analyzer 0 % (0-5); Neutrophil # 4.88 X10^3/uL (2.7-7.7); Neutrophil % 59.5 % (47-70); Platelet Count 517 K/mm3 (150-450); RBC Distribution Width CV 15.3 % (11.6-14.6); RBC Distribution Width SD 46.4 fl (35.1-43.9); Red Blood Count 3.86 M/mm3 (4.2-5.4); White Blood Count 8.2 K/mm3 (4.4-11.0)
[2022-10-11 18:16] LABS: Vitamin D,25 Hydroxy 75.8 ng/mL
[2022-10-11 18:24] LABS: Erythrocyte Sedimentation Rate 17 mm/hr (0-30)
== END | disposition home or self-care (01) ==
LOC: MTLAB 15:12
PROVIDERS: PCP Family Medicine; Visit Provider Family Medicine
DX: M81.0 Age-related osteoporosis without current pathological fracture (principal); M54.6 Pain in thoracic spine
CPT/HCPCS: 36415; 72072; 80048; 82306; 83970; 85025; 85652

== ENCOUNTER → 2022-10-23 | Outpatient (CLI) | payer OTHER, SELFPAY ==
--- NOTE | 2022-10-23 09:34 | NM_ITS ---
CLINICAL: 62-year-old female with history of elevation of the serum parathyroid hormone level. 99m Tc SESTAMIBI DUAL PHASE PARATHYROID SCINTIGRAPHY COMPARISON: None available FINDINGS: Following the intravenous administration of 27.1 mCi of 99m Tc sestamibi, image acquisitions of the anterior neck at approximately 15 minutes and 3.0 hours post radiopharmaceutical provision reveal: 1. Immediate static blood pool acquisitions demonstrate visualization of the left and right thyroid colloid of a vaguely U-shaped thyroid gland. 2. Delayed images depict symmetric washout of the radiotracer from the right-left thyroid beds. No focal retention of radiopharmaceutical is defined.. NM/Parathyroid Scan IMPRESSION: 1. NEGATIVE 99m Tc SESTAMIBI PARATHYROID IMAGING DUAL PHASE EXAMINATION. 2. There is no definitive scintigraphic evidence of parathyroid adenoma on the present evaluation. Electronically Signed: Valentino Boswell, at 22:20 EDT ,
== END | disposition home or self-care (01) ==
LOC: NM 09:33
PROVIDERS: PCP Family Medicine; Referring Provider Family Medicine; Visit Provider Family Medicine
DX: E21.5 Disorder of parathyroid gland, unspecified (principal)
CPT/HCPCS: 78070; A9500

== ENCOUNTER → 2022-10-31 | Outpatient (CLI) | payer OTHER, SELFPAY ==
[2022-10-31 18:06] LABS: Hematocrit 29.1 % (37-47); Hemoglobin 8.9 g/dL (12.0-15.0); Mean Corp Hgb Conc 30.6 g/dL (32-36); Mean Corpuscular Hgb 25.6 pg (27.0-32.0); Mean Corpuscular Volume 83.6 fL (81-99); Mean Platelet Vol. 9.5 fl (6.2-12.0); Platelet Count 429 K/mm3 (150-450); RBC Distribution Width CV 15.6 % (11.6-14.6); RBC Distribution Width SD 47.2 fl (35.1-43.9); RET-HE 25.1 pg (30-35); Red Blood Count 3.48 M/mm3 (4.2-5.4); Reticulocyte Count 1.31 % (0.5-1.5); White Blood Count 7.2 K/mm3 (4.4-11.0)
[2022-10-31 18:41] LABS: Anion Gap 6 (5-15); BUN 20 mg/dL (7-18); BUN/Creat Ratio 11.9 RATIO (10-20); Chloride 108 mmol/L (98-107); Creatinine, Serum 1.68 mg/dL (0.55-1.02); EST Glomerular Filtration Rate 33 mL/min (>60); Est Glom Filt Rate - Afr Amer 40 mL/min (>60); Ferritin 9 ng/mL (8-252); Glucose 98 mg/dL (74-106); Iron 22 ug/dL (50-170); Iron Binding Capacity,Total 411 ug/dL (250-450); Potassium 4.3 mmol/L (3.5-5.1); Sodium Level 140 mmol/L (136-145); Thyroid Stim Hormone (TSH) 1.82 uIU/mL (0.358-3.74)
== END | disposition home or self-care (01) ==
LOC: MFPLAB 16:24
PROVIDERS: PCP Family Medicine; Visit Provider Family Medicine
DX: D50.9 Iron deficiency anemia, unspecified (principal); R60.0 Localized edema
CPT/HCPCS: 36415; 80048; 82728; 83540; 83550; 84443; 85027; 85045

== ENCOUNTER → 2022-11-14 | Outpatient (CLI) | payer OTHER, SELFPAY ==
[2022-11-14 17:57] LABS: Anion Gap 7 (5-15); BUN 12 mg/dL (7-18); BUN/Creat Ratio 11.1 RATIO (10-20); Chloride 108 mmol/L (98-107); Creatinine, Serum 1.08 mg/dL (0.55-1.02); EST Glomerular Filtration Rate 55 mL/min (>60); Est Glom Filt Rate - Afr Amer 66 mL/min (>60); Glucose 119 mg/dL (74-106); Potassium 3.6 mmol/L (3.5-5.1); Sodium Level 140 mmol/L (136-145)
== END | disposition home or self-care (01) ==
PROVIDERS: PCP Family Medicine; Referring Provider Family Medicine; Visit Provider Family Medicine
DX: D50.9 Iron deficiency anemia, unspecified (principal)
CPT/HCPCS: 36415; 80048

== ENCOUNTER → 2023-02-18 | Outpatient (CLI) | payer OTHER, SELFPAY ==
[2023-02-18 17:44] LABS: Hematocrit 36.7 % (37-47); Hemoglobin 11.4 g/dL (12.0-15.0); Mean Corp Hgb Conc 31.1 g/dL (32-36); Mean Corpuscular Hgb 27.7 pg (27.0-32.0); Mean Corpuscular Volume 89.1 fL (81-99); Mean Platelet Vol. 9.7 fl (6.2-12.0); Platelet Count 403 K/mm3 (150-450); RBC Distribution Width CV 14.8 % (11.6-14.6); RBC Distribution Width SD 47.8 fl (35.1-43.9); RET-HE 29.2 pg (30-35); Red Blood Count 4.12 M/mm3 (4.2-5.4); Reticulocyte Count 1.33 % (0.5-1.5); White Blood Count 6.9 K/mm3 (4.4-11.0)
[2023-02-18 18:08] LABS: Anion Gap 9 (5-15); BUN 11 mg/dL (7-18); BUN/Creat Ratio 10.8 RATIO (10-20); Calcium,Total 8.5 mg/dL (8.5-10.1); Chloride 107 mmol/L (98-107); Creatinine, Serum 1.02 mg/dL (0.55-1.02); EST Glomerular Filtration Rate 59 mL/min (>60); Est Glom Filt Rate - Afr Amer 71 mL/min (>60); Ferritin 18 ng/mL (8-252); Glucose 94 mg/dL (74-106); Iron 39 ug/dL (50-170); Potassium 3.7 mmol/L (3.5-5.1); Sodium Level 141 mmol/L (136-145)
== END | disposition home or self-care (01) ==
LOC: MFPLAB 15:33
PROVIDERS: PCP Family Medicine; Visit Provider Family Medicine
DX: D50.9 Iron deficiency anemia, unspecified (principal); N18.30 Chronic kidney disease, stage 3 unspecified
CPT/HCPCS: 36415; 80048; 82728; 83540; 85027; 85045

== ENCOUNTER → 2023-03-05 | Outpatient (CLI) | payer OTHER, SELFPAY ==
--- NOTE | 2023-03-05 15:15 | RAD_ITS ---
EXAM: XR THORACIC SPINE, 3 VIEWS CLINICAL INDICATION: M51.36 TECHNIQUE: Frontal, lateral and swimmer''s views of the thoracic spine. COMPARISON: Plain film thoracic spine 10/11/2022. FINDINGS: VERTEBRAE: Unremarkable. Preserved vertebral body height. No fracture. No spondylolisthesis. Preservation of the normal thoracic kyphosis. No significant facet arthropathy. DISC SPACES: Degenerative changes of the intervertebral discs. RAD/Thoracic Spine 3 Views IMPRESSION: 1. No acute injuries identified involving the thoracic spine. 2. Degenerative changes. Electronically Signed: Tito Willett MD at 6:04 EST ,
== END | disposition home or self-care (01) ==
LOC: RAD 15:08
PROVIDERS: PCP Family Medicine; Referring Provider Anesthesiology Pain Medicine; Visit Provider Anesthesiology Pain Medicine
DX: M51.36 Other intervertebral disc degeneration, lumbar region (principal)
CPT/HCPCS: 72072

== ENCOUNTER → 2023-05-31 | Outpatient (CLI) | payer OTHER, SELFPAY ==
--- NOTE | 2023-05-31 10:00 | BI_ITS ---
MAMMOGRAPHY - BILATERAL SCREENING 3-D TOMOSYNTHESIS REASON FOR EXAM: Female, 62 years old. SCREEN PERTINENT HISTORY: No significant family history. TECHNIQUE: 2-D mammograms and 3-D Tomosynthesis of the breast (s) were performed. CAD was performed. COMPARISON: 03/09/2022 FINDINGS: The breast composition is heterogeneously dense that can obscure small breast masses. Scattered benign calcifications are seen. No dense spiculated masses or suspicious microcalcifications are identified. No architectural distortion is identified. There is no skin thickening or retraction. There has been no significant change since the prior study. BI/SCRN MAMM (CAD)W/BENJAMIN BILAT IMPRESSION: No mammographic signs of malignancy. Routine yearly mammograms recommended. ASSESSMENT CATEGORY: BIRADS Category 1: Negative. A letter regarding these results will be sent to the patient by the facility within 30 days. FOLLOW UP RECOMMENDATION: Yearly follow up mammogram recommended. (A) Approximately 10% of breast cancers are not detected by mammography. A normal mammogram should not delay biopsy of a clinically suspicious abnormality. Electronically Signed: Valentino Figueroa MD at 14:12 EST ,
== END | disposition home or self-care (01) ==
LOC: OPBI 09:59
PROVIDERS: PCP Family Medicine; Referring Provider Family Medicine; Visit Provider Family Medicine
DX: Z12.31 Encounter for screening mammogram for malignant neoplasm of breast (principal)
CPT/HCPCS: 77063; 77067

== ENCOUNTER → 2023-08-21 | Outpatient (CLI) | payer OTHER, SELFPAY ==
[2023-08-21 18:10] LABS: Hematocrit 37.6 % (37-47); Hemoglobin 11.9 g/dL (12.0-15.0); Mean Corp Hgb Conc 31.6 g/dL (32-36); Mean Corpuscular Hgb 28.3 pg (27.0-32.0); Mean Corpuscular Volume 89.3 fL (81-99); Mean Platelet Vol. 9.7 fl (6.2-12.0); Platelet Count 386 K/mm3 (150-450); RBC Distribution Width CV 13.6 % (11.6-14.6); RBC Distribution Width SD 44.8 fl (35.1-43.9); Red Blood Count 4.21 M/mm3 (4.2-5.4); White Blood Count 7.2 K/mm3 (4.4-11.0)
[2023-08-21 18:14] LABS: PTHIN 107.7 pg/mL (18.4-80.1)
[2023-08-21 18:24] LABS: Anion Gap 9 (5-15); BUN 16 mg/dL (7-18); BUN/Creat Ratio 16.8 RATIO (10-20); Calcium,Total 8.9 mg/dL (8.5-10.1); Chloride 106 mmol/L (98-107); Creatinine, Serum 0.95 mg/dL (0.55-1.02); EST Glomerular Filtration Rate 63 mL/min (>60); Est Glom Filt Rate - Afr Amer 77 mL/min (>60); Ferritin 67 ng/mL (8-252); Glucose 109 mg/dL (74-106); Iron 71 ug/dL (50-170); Potassium 3.6 mmol/L (3.5-5.1); Sodium Level 140 mmol/L (136-145)
== END | disposition home or self-care (01) ==
LOC: MFPLAB 16:15
PROVIDERS: PCP Family Medicine; Visit Provider Family Medicine
DX: N18.30 Chronic kidney disease, stage 3 unspecified (principal); D50.9 Iron deficiency anemia, unspecified
CPT/HCPCS: 36415; 80048; 82306; 82728; 83540; 83970; 85027

== ENCOUNTER → 2023-11-19 | Outpatient (CLI) | payer OTHER, SELFPAY ==
[2023-11-19 18:11] LABS: ALB/GLOB Ratio 1.2 RATIO (0.9-2.4); AST(SGOT) 13 U/L (15-37); Alanine Aminotransfer ALT/SGPT 20 U/L (13-56); Albumin, Serum 3.9 g/dL (3.2-5.0); Alkaline Phosphatase 77 U/L (45-117); Anion Gap 7 (5-15); BUN 16 mg/dL (7-18); BUN/Creat Ratio 16.8 RATIO (10-20); Calcium,Total 9.3 mg/dL (8.5-10.1); Chloride 105 mmol/L (98-107); Creatinine, Serum 0.95 mg/dL (0.55-1.02); EST Glomerular Filtration Rate 63 mL/min (>60); Est Glom Filt Rate - Afr Amer 76 mL/min (>60); Globulin 3.2 g/dL (2.2-4.2); Glucose 105 mg/dL (74-106); Protein, Total 7.1 g/dL (6.4-8.2); Sodium Level 140 mmol/L (136-145)
== END | disposition home or self-care (01) ==
LOC: MTLAB 16:01
PROVIDERS: PCP Family Medicine; Referring Provider Family Medicine; Visit Provider Family Medicine
DX: R60.0 Localized edema (principal)
CPT/HCPCS: 80053

== ENCOUNTER → 2023-12-09 | Outpatient (CLI) | payer OTHER, SELFPAY ==
[2023-12-09 18:15] LABS: Anion Gap 7 (5-15); BUN 17 mg/dL (7-18); BUN/Creat Ratio 16.7 RATIO (10-20); Calcium,Total 9.2 mg/dL (8.5-10.1); Chloride 102 mmol/L (98-107); Creatinine, Serum 1.02 mg/dL (0.55-1.02); EST Glomerular Filtration Rate 58 mL/min (>60); Est Glom Filt Rate - Afr Amer 71 mL/min (>60); Glucose 113 mg/dL (74-106); Potassium 3.6 mmol/L (3.5-5.1); Sodium Level 137 mmol/L (136-145)
== END | disposition home or self-care (01) ==
LOC: MFPLAB 14:55
PROVIDERS: PCP Family Medicine; Visit Provider Family Medicine
DX: N18.30 Chronic kidney disease, stage 3 unspecified (principal)
CPT/HCPCS: 36415; 80048

== ENCOUNTER → 2023-12-31 | Outpatient (CLI) | payer OTHER, SELFPAY ==
[2023-12-31 17:40] LABS: Anion Gap 9 (5-15); BUN 15 mg/dL (7-18); BUN/Creat Ratio 15.8 RATIO (10-20); Calcium,Total 9.3 mg/dL (8.5-10.1); Chloride 101 mmol/L (98-107); Creatinine, Serum 0.95 mg/dL (0.55-1.02); EST Glomerular Filtration Rate 63 mL/min (>60); Est Glom Filt Rate - Afr Amer 77 mL/min (>60); Glucose 106 mg/dL (74-106); Sodium Level 138 mmol/L (136-145)
== END | disposition home or self-care (01) ==
LOC: MFPLAB 15:17
PROVIDERS: PCP Family Medicine; Visit Provider Family Medicine
DX: I10 Essential (primary) hypertension (principal)
CPT/HCPCS: 36415; 80048

== ENCOUNTER → 2024-04-06 | Outpatient (CLI) | payer OTHER, SELFPAY ==
[2024-04-06 18:51] LABS: Anion Gap 7 (5-15); BUN 16 mg/dL (7-18); BUN/Creat Ratio 17.3 RATIO (10-20); Calcium,Total 9.2 mg/dL (8.5-10.1); Chloride 103 mmol/L (98-107); Creatinine, Serum 0.92 mg/dL (0.55-1.02); EST Glomerular Filtration Rate 65 mL/min (>60); Est Glom Filt Rate - Afr Amer 79 mL/min (>60); Glucose 105 mg/dL (74-106); Sodium Level 140 mmol/L (136-145)
== END | disposition home or self-care (01) ==
LOC: MFPLAB 15:33
PROVIDERS: PCP Family Medicine; Referring Provider Family Medicine; Visit Provider Family Medicine
DX: I10 Essential (primary) hypertension (principal)

== ENCOUNTER → 2024-05-15 | Outpatient (CLI) | payer OTHER, SELFPAY ==
[2024-05-15 18:25] LABS: Anion Gap 8 (5-15); BUN 16 mg/dL (7-18); BUN/Creat Ratio 18.5 RATIO (10-20); Calcium,Total 9.2 mg/dL (8.5-10.1); Chloride 102 mmol/L (98-107); Creatinine, Serum 0.86 mg/dL (0.55-1.02); EST Glomerular Filtration Rate 70 mL/min (>60); Est Glom Filt Rate - Afr Amer 85 mL/min (>60); Glucose 92 mg/dL (74-106); Sodium Level 138 mmol/L (136-145)
== END | disposition home or self-care (01) ==
LOC: MFPLAB 14:39
PROVIDERS: PCP Family Medicine; Referring Provider Family Medicine; Visit Provider Family Medicine
DX: I10 Essential (primary) hypertension (principal)
CPT/HCPCS: 36415; 80048

== ENCOUNTER → 2024-06-12 | Outpatient (CLI) | payer OTHER, SELFPAY ==
[2024-06-12 18:13] LABS: Anion Gap 14 (5-15); BUN 16 mg/dL (4-19); Calcium,Total 9.4 mg/dL (7.6-11.0); Chloride 99 mmol/L (98-108); Creatinine, Serum 0.87 mg/dL (0.70-1.20); EST Glomerular Filtration Rate 76 (>60); Glucose 104 mg/dL (70-99); Potassium 3.2 mmol/L (3.3-5.1); Sodium Level 138 mmol/L (133-145)
== END | disposition home or self-care (01) ==
LOC: MFPLAB 14:34
PROVIDERS: PCP Family Medicine; Referring Provider Family Medicine; Visit Provider Family Medicine
DX: E87.6 Hypokalemia (principal)
CPT/HCPCS: 36415; 80048

== ENCOUNTER → 2024-07-21 | Outpatient (CLI) | payer OTHER, SELFPAY ==
--- NOTE | 2024-07-21 06:57 | BI_ITS ---
EXAM: SCRN MAMM (CAD)W/BENJAMIN BILAT 07/21/2024 CLINICAL HISTORY: F, Age 63 y/o , SCREENING TECHNIQUE: Bilateral screening digital breast tomosynthesis with 2D and 3D images. Computer aided detection. COMPARISON: Prior exam(s) dated 05/31/2023, 03/09/2022, 12/08/2019. FINDINGS: TISSUE DENSITY: The breast tissue is composed of scattered area of fibroglandular density. Bilateral Breast Mammographic Findings: No significant masses, calcifications or other abnormalities are identified. BI/SCRN MAMM (CAD)W/BENJAMIN BILAT IMPRESSION: Right Breast: BIRADS 1 NEGATIVE. Left Breast: BIRADS 1 NEGATIVE. OVERALL FINAL ASSESSMENT: BIRADS 1 NEGATIVE. RECOMMENDATION: Routine annual follow-up in 1 Year A letter with findings and recommendations will be mailed to the patient. Reading Location: [id number]
--- NOTE | 2024-07-21 07:00 | BD_ITS ---
PROCEDURE: DEXA BONE DENSITY STUDY REASON FOR EXAM: None provided TECHNIQUE: DEXA scan of the lumbar spine and bilateral hips, using a H[employer] Horizon W unit. REFERENCE LINKS: [facility] Adult Positions COMPARISON: 12/08/2019 ; note that images only are available for review, the report is not available at the time of the dictation. Measurements obtained are retained by the imaging unit. FINDINGS: LUMBAR SPINE: Bone mineral denisty, L1-L4: 0.664 g/cm??? T-score: -3.5 LEFT FEMORAL NECK: Bone mineral denisty: 0.518 g/cm??? T-score: -3.0 LEFT TOTAL HIP: Bone mineral denisty: 0.636 g/cm??? T-score: -2.5 RIGHT FEMORAL NECK: Bone mineral denisty: 0.519 g/cm??? T-score: -3.0 RIGHT TOTAL HIP: Bone mineral denisty: 0.606 g/cm??? T-score: -2.8 FRAX*: 10 Year Probability of Fracture: Major Osteoporotic Fracture(1): 22.0% Hip Fracture(2): 6.1% *FRAX is a trademark of the [employer]'s [place] [facility] Metabolic [employer] Disease, World Health Organization (WHO) Collaborating [place]. 1-Major Osteoporotic Fracture: Clinical Spine, Forearm, Hip or Shoulder. 2-The 10-year probability of fracture may be lower than reported if the patient has received treatment. The National Osteoporosis Foundation recommends that medical therapy be considered in postmenopausal women and men, age 50 and older, with a: * hip or vertebral fracture * T-score less than or equal to -2.5 in the spine or hip * T-score between -1.0 and -2.5 and FRAX equal to or less than 3 percent for hip fracture or equal to or less than 20 percent for major osteoporotic fracture. World Health Organization criteria for BMD interpretation classify patients as Normal (T-score at or above -1.0), Osteopenic (T-score between -1.0 and -2.5), or Osteoporotic (T-score at or below -2.5). BD/Dexa Bone Density Study IMPRESSION: 1. Osteoporosis. 2. Since the prior exam there has been a decrease of 0.142 g/cm??? (17.6%) in t he bone mineral density of the lumbar spine. 3. Additional description as above. Reading Location: [place]
== END | disposition home or self-care (01) ==
PROVIDERS: PCP Family Medicine; Referring Provider Family Medicine; Visit Provider Family Medicine
DX: Z12.31 Encounter for screening mammogram for malignant neoplasm of breast (principal); M81.0 Age-related osteoporosis without current pathological fracture
CPT/HCPCS: 77063; 77067; 77080

== ENCOUNTER → 2024-10-19 | Outpatient (CLI) | payer OTHER, SELFPAY ==
[2024-10-19 11:00] LABS: Hematocrit 39.0 % (37-47); Hemoglobin 13.4 g/dL (12.0-15.0); Mean Corp Hgb Conc 34.4 g/dL (32-36); Mean Corpuscular Volume 84.4 fL (81-99); Mean Platelet Vol. 9.3 fl (6.2-12.0); Platelet Count 476 K/mm3 (150-450); RBC Distribution Width CV 14.1 % (11.6-14.6); RBC Distribution Width SD 43.5 fl (35.1-43.9); Red Blood Count 4.62 M/mm3 (4.2-5.4); White Blood Count 8.7 K/mm3 (4.4-11.0)
[2024-10-19 12:15] LABS: AST(SGOT) 16 U/L (<=31); Alanine Aminotransfer ALT/SGPT 11 U/L (<=34); Albumin, Serum 4.1 g/dL (3.4-4.8); Alkaline Phosphatase 113 U/L (35-104); Anion Gap 14 (5-15); BUN 10 mg/dL (4-19); BUN/Creat Ratio 11.9 RATIO (10-20); Calcium,Total 9.4 mg/dL (7.6-11.0); Carbon Dioxide 25.3 mmol/L (21.0-32.0); Chloride 100 mmol/L (98-108); Globulin 3.0 g/dL (2.2-4.2); Glucose 81 mg/dL (70-99); Magnesium 2.0 mg/dL (1.5-2.2); Potassium 3.7 mmol/L (3.3-5.1)
[2024-10-19 12:17] LABS: Vitamin D,25 Hydroxy 65.6 ng/mL (30-100)
[2024-10-19 12:39] LABS: PTHIN 89 pg/mL (11-61)
== END | disposition home or self-care (01) ==
LOC: MFPLAB 09:14
PROVIDERS: PCP Family Medicine; Referring Provider Family Medicine; Visit Provider Family Medicine
DX: R23.2 Flushing (principal); M81.0 Age-related osteoporosis without current pathological fracture
CPT/HCPCS: 36415; 80053; 82306; 83735; 83970; 84443; 85027; 85652